=== PATIENT | female | born 1995 | race Caucasian/White ===

== ENCOUNTER 2019-09-16 21:05 | Emergency (ER) | payer OTHER ==
[~2019-09-16] VITALS: Ht 165.1 cm; Wt 123.4 kg
[~2019-09-16 21:05] MED LIST: IBUPROFEN 600600 M1 PO; NORCO 5-325 TA1 EACH PO
[2019-09-16] MEDS ORDERED: NF (21:14)
[2019-09-16 21:41] LABS: AMP/METHAMP Negative (Negative); BARBITURATES Negative (Negative); BENZODIAZEPINES Negative (Negative); COCAINE Negative (Negative); METHADONE Negative (Negative); OPIATES Negative (Negative); PCP Negative (Negative)
[2019-09-16 22:03] LABS: CALCIUM 9.3 mg/dL (8.5-10.1); CREATININE 0.9 mg/dL (0.6-1.0); MAGNESIUM 1.8 mg/dL (1.8-2.4); POTASSIUM 3.2 mmol/L (3.5-5.1)
[2019-09-16 23:17] LABS: ABSOLUTE NEUTROPHILS 6.1 thou/uL (1.4-8.2); BASOPHILS 0.7 % (0.0-2.0); EOSINOPHILS 0.3 % (0.0-3.0); HEMATOCRIT 36.3 % (37.0-47.0); HEMOGLOBIN 12.2 gm/dL (12.0-15.0); LYMPHOCYTES 18.3 % (24.0-44.0); MCH 29.6 pg (26.0-34.0); MCHC 33.5 g/dL (28.0-37.0); MCV 88.4 fL (80.0-100.0); MONOCYTES 5.6 % (1.0-8.0); PLATELET COUNT 272 thou/uL (150-400); POLYS 75.1 % (36.0-66.0); RBC 4.11 mil/uL (4.20-5.00); RDW 14.4 % (10.5-14.5); WBC 8.2 thou/uL (4.0-11.0)
[2019-09-16 23:33] VITALS: BP 140/78
--- NOTE | 2019-09-17 10:30 | EKG ---
[address] [address] ELECTROCARDIOGRAM REPORT Name: TARIQ STROUD [id number] Admission: 09/16/19 Attend Phys: Discharge: 09/16/19 Date of : [birth year] Report #: [id number] THIS REPORT FOR: //name// [facility] ED Test Date: 2019-09-16 Test Time: 21:16:22 Pat Name: TARIQ STROUD Department: Room: Gender: F Application Packager: MARIEL : 1995 Requested By: Baldemar Bundy Order Number: [id number] MD: Brian Bowling Measurements Intervals [place] Rate: 96 P: 57 NC: 133 QRS: 73 QRSD: 89 T: 32 QT: 355 QTc: 449 Interpretive Statements Sinus rhythm No previous ECG available for comparison Electronically Signed On 09-17-2019 10:29:51 [employer] by Brian Bowling [email or web address] <ELECTRONICALLY SIGNED> By: Brian Bowling MD 09/17/19 1029 [id number] Brian Bowling MD /EPI
== END 2019-09-16 23:39 | disposition home or self-care (01) ==
LOC: ER 21:05
PROVIDERS: Emergency Medicine
DX: F10.10 Alcohol abuse, uncomplicated (principal); R55 Syncope and collapse; F17.210 Nicotine dependence, cigarettes, uncomplicated; Z91.018 Allergy to other foods; Z73.6 Limitation of activities due to disability

== ENCOUNTER → 2021-07-03 | Emergency (ER) | payer OTHER ==
[~2021-07-03] VITALS: Ht 167.6 cm; Wt 106.6 kg
[~2021-07-03] MED LIST changes: +NF; +NORCO5 PO
[2021-07-03 19:29] VITALS: BP 150/92
== END ==
LOC: ER 18:59
DX: J03.90 Acute tonsillitis, unspecified (principal); F17.210 Nicotine dependence, cigarettes, uncomplicated; Z91.018 Allergy to other foods